=== PATIENT | male | born 1990 | race Hispanic/Latino ===

== ENCOUNTER 2025-03-23 10:03 | Emergency (ER) | payer OTHER ==
[2025-03-23] MEDS ORDERED: MORPHINE 4 MG/ML SYR ONE (10:14)
[2025-03-23] MEDS ORDERED: ONDANSETRON 4 MG/2 ML VIAL ONE (10:15)
[2025-03-23] MEDS ORDERED: NA CHLORIDE 0.9% 1,000 ML ONE (10:15)
[2025-03-23 10:29] LABS: Absolute Lymphocytes (CBC) 2.2 K/uL (0.7-4.9); Hematocrit 44.7 % (39.6-49.0); Hemoglobin 14.9 g/dL (13.6-17.9); MCH 27.7 pg (27.0-35.0); MCHC 33.3 g/dL (32.0-36.0); MCV 83.2 fL (80-100); MPV 8.0 fL (7.6-11.3); Nucleated RBC Absolute Count 0.0 (0-0); Nucleated Red Blood Cells % 0.1 % (0-0); RBC Red Blood Cell Count 5.37 M/uL (4.33-5.43); White Blood Count 7.70 thou/uL (4.3-10.9)
[2025-03-23] MEDS ORDERED: KETOROLAC 30 MG/ML INJ ONE (10:42)
[2025-03-23] MEDS ORDERED: HYDROMORPHONE HCL 1 MG/ML INJ ONE (10:42)
[2025-03-23 10:49] LABS: ALT/SGPT 42.0 U/L (16-61); AST/SGOT 19.0 U/L (15-37); Albumin 4.1 g/dL (3.4-5.0); Albumin/Globulin Ratio 1.1 (1.1-1.8); Alkaline Phosphatase 62.0 U/L (45-117); Anion Gap 8.9 mEq/L (5.0-15.0); BUN Blood Urea Nitrogen 14.0 mg/dL (7-18); Globulin 3.8 g/dL (2.3-3.5); Glucose Level 108.0 mg/dL (74-106); Lipase 24.0 U/L (13-75); Potassium 3.9 mEq/L (3.5-5.1)
--- NOTE | 2025-03-23 10:52 | RAD REPORT ---
EXAMINATION: CT ABDOMEN AND PELVIS WITH CONTRAST CLINICAL INDICATION: Abdominal pain TECHNIQUE: CT abdomen and pelvis was performed, after the administration of 100 cc Isovue-300.. Sagit jase and coronal reconstructions were obtained. One or more of the following dose reduction techniques were used: Automated exposure control, adjustment of the mA and kV according to patient si ze, and iterative reconstruction. Unless otherwise specified, incidental findings do not require dedicated imaging follow-up. [id number]. Oral contrast was not given which limits evaluation of bowel and appendix. COMPARISON: .None FINDINGS: Multiple right renal calculi. Delay in concentration of contrast within the right kidney. Mild to mod erate right hydronephrosis is present. Right ureter is dilated. 3 mm calculus right UVJ.. 3 cm fluid filled structure upper pole right kidney contains several calcifications. Multiple left renal calculi. No hydronephrosis. Left ureter is not dilated. 3 mm calculus left UPJ. L eft renal simple cysts Liver, spleen, pancreas and adrenals unremarkable Small hiatal hernia. No evidence of diverticulitis. Small inguinal hernias : IMPRESSION: 3 mm calculus right UVJ results in mild to moderate right hydronephrosis 3 cm fluid filled structure right kidney contains calcifications. This may represent a calyceal diver ticulum. This could be evaluated with delayed CT abdomen to determine if contrast fills the fluid which would confirm a calyceal diverticulum. Bilateral renal calculi 3 mm calculus left UVJ does not appear to result in an obstruction
[2025-03-23 11:19] LABS: Sqamous Epithelial <5 /HPF (None Seen); Urine Crystals Unidentified Few /HPF (None Seen); Urine Culture Reflex Order NOT NEEDED; Urine Microscopic Reflex YN ORDER UMIC; Urine WBC Clump Rare /HPF (None Seen); Urine Yeast (Budding) Trace /HPF (None Seen)
--- NOTE | 2025-03-23 12:20 | RAD REPORT ---
EXAMINATION: Abdomen Wo Contrast CLINICAL INDICATION: Abdominal pain TECHNIQUE: CT abdomen was performed, without IV contrast. Patient had received IV contrast earlier in return for delayed images., Axial, sagittal and coronal reconstructions were obtained. One or more of the following dose reduction techniques were used: Automated exposure control, adjustment of the m A and kV according to the patient size, and iterative reconstruction. Unless otherwise specified, incidental findings do not require dedicated imaging follow-up. COMPARISON: March 23, 2025 CT FINDINGS: Contrast fills 3 calyceal diverticula left kidney. Largest 2.5 cm. 3 cm fluid-filled structure upper pole right kidney does not fill with contrast. Density 28 Hounsfiel d unit on the enhanced CT. IMPRESSION: 3 cm complex cystic mass upper pole right kidney may represent a benign complex cyst or cystic neopla sm. Left renal calyceal diverticula
--- NOTE | 2025-03-23 12:37 | ER ---
Nurse's Notes [facility] Name: Drake Peters Age: 35 yrs Sex: Male : 1990 Arrival Date: 03/23/2025 Time: 10:03 Bed 17 Private MD: Diagnosis: Calculus of kidney with calculus of ureter-right, 3 mm with hydronephrosis Presentation: 03/23 10:20 Chief complaint: Patient states: right sided abd pain started 1 hour ago , radiates to iw back. Coronavirus screen: At this time, the client does not indicate any symptoms associated with coronavirus-19. Ebola Screen: No symptoms or risks identified at this time. Initial Sepsis Screen: Does the patient meet any 2 criteria? No. Patient's initial sepsis screen is negative. Does the patient have a suspected source of infection? No. Patient's initial sepsis screen is negative. Risk Assessment: Do you want to hurt yourself or someone else? Patient reports no desire to harm self or others. 10:20 Method Of Arrival: Ambulatory iw 10:20 Acuity: NAVNEET 3 iw 10:37 Onset of symptoms was March 23, 2025 at 09:30. me1 Historical: - Allergies: 10:21 No Known Allergies; iw - Home Meds: 10:21 None [Active]; iw - PMHx: 10:21 None; iw - PSHx: 10:21 None; iw - Immunization history:: Adult Immunizations up to date. - Infectious Disease History:: Denies. - Social history:: Smoking status: Patient denies any tobacco usage or history of. Screenin:15 [facility] ED Fall Risk Assessment (Adult) History of falling in the last 3 months, me1 including since admission No falls in past 3 months (0 pts) Confusion or Disorientation No (0 pts) Intoxicated or Sedated No (0 pts) Impaired Gait No (0 pts) Mobility Assist Device Used No (0 pt) Altered Elimination No (0 pt) Score/Fall Risk Level 0 - 2 = Low Risk Maintained a safe environment, Provided non-skid footwear, Hourly rounding (assess needs \T\ fall precautionary measures) done. Abuse screen: Denies threats or abuse. Nutritional screening: No deficits noted. Tuberculosis screening: No symptoms or risk factors identified. Assessment: 10:15 General: Appears uncomfortable, well groomed, well developed, well nourished, Behavior me1 is calm, cooperative, appropriate for age, Reports right sided abd pain started 1 hour ago , radiates to back. Pain: Complains of pain in right lower quadrant Pain radiates to anterior aspect of right lateral abdomen Pain currently is 8 out of 10 on a pain scale. Quality of pain is described as sharp, shooting, Pain began suddenly, Is continuous. Neuro: Level of Consciousness is awake, alert, obeys commands, Oriented to person, place, time, situation, Appropriate for age. Cardiovascular: Patient's skin is warm and dry. Respiratory: Airway is patent Respiratory effort is even, unlabored, Respiratory pattern is regular, symmetrical. GI: Abdomen is non-distended, Bowel sounds present X 4 quads. Abd is soft X 4 quads Reports lower abdominal pain, since this morning. : Reports pain in right flank(s), lower quadrant(s) since this morning. EENT: No signs and/or symptoms were reported regarding the EENT system. Derm: Musculoskeletal: Circulation, motion, and sensation intact. Range of motion: intact in all extremities. Vital Signs: 10:20 BP 145 / 103; Pulse 72; Resp 16; Temp 99.2; Pulse Ox 100% on R/A; Weight 99.79 kg; iw Height 6 ft. 4 in. ; 11:00 BP 153 / 93; Pulse 78; Resp 16; Pulse Ox 94% ; me1 11:08 Pain 3/10; me1 12:00 BP 156 / 81; Pulse 87; Resp 16; Pulse Ox 100% ; me1 12:51 BP 141 / 78; Pulse 70; Resp 15; Temp 98.3; Pulse Ox 98% ; me1 10:20 Body Mass Index 26.78 (99.79 kg, 193.04 cm) iw 11:08 Pain Scale: Adult me1 ED Course: 10:07 Patient arrived in ED. al6 10:08 Sonya Alvarado PA-C is PHCP. sb4 10:08 Aneesh Fay DO is Attending Physician. sb4 10:13 Gabbi Monet, LIBBY is Primary Nurse. me1 10:15 No provider procedures requiring assistance completed. me1 10:15 Patient has correct armband on for positive identification. Bed in low position. Call me1 light in reach. Side rails up X2. Provided Education on: POC. Verbalized understanding.. Client placed on continuous cardiac and pulse oximetry monitoring. NIBP monitoring applied. Pulse ox on. NIBP on. 10:19 CBC with Diff Sent. bc6 10:19 CMP Sent. bc6 10:19 Lipase Sent. bc6 10:19 Initial lab(s) drawn, by me, sent to lab. Inserted saline lock: 20 gauge in right bc6 antecubital area, using aseptic technique. Blood collected. Flushed with 10 mL NS. 10:21 Triage completed. iw 10:21 Arm band placed on. iw 10:32 CT Abd/Pelvis - IV Contrast Only In Process Unspecified. EDMS 11:08 UA Rfx Jered Cult if indicated Sent. me1 11:08 Urine collected: clean catch specimen, clear. me1 11:15 Abdomen Wo Contrast In Process Unspecified. EDMS 12:36 Siva Gracia MD is Referral Physician. sb4 12:56 IV discontinued, intact, bleeding controlled, No redness/swelling at site. Pressure me1 dressing applied. Administered Medications: 10:31 Drug: Ondansetron IVP 4 mg IVP once; over 2 minutes Route: IVP; Site: right antecubital;me1 10:46 Follow up: Response: No adverse reaction; Nausea is decreased me1 10:32 Drug: morphine IVP or IV 4 mg IVP once over 4 mins Route: IVP; Infused Over: 4 mins; me1 Site: right antecubital; 10:46 Follow up: Response: No adverse reaction; Pain is unchanged, physician notified me1 10:32 Drug: NS 0.9% IV 1000 ml IV at 1 bolus Per protocol; to be given as a bolus over 60 me1 minutes Route: IV; Rate: 1 bolus; Site: right antecubital; 12:51 Follow up: Response: No adverse reaction; IV Status: Completed infusion; IV Intake: me1 1000ml 10:46 Drug: HYDROmorphone IVP 1 mg IVP once Route: IVP; Site: right antecubital; me1 11:08 Follow up: Pain 3/10 Adult; Response: No adverse reaction; Pain is decreased me1 10:46 Drug: Ketorolac IVP 15 mg IVP once Route: IVP; Site: right antecubital; me1 11:08 Follow up: Response: No adverse reaction; Pain is decreased me1 Medication: 10:15 VIS not applicable for this client. me1 Intake: 12:51 IV: 1000ml; Total: 1000ml. me1 Outcome: 12:36 Discharge ordered by . sb4 12:56 Discharged to home ambulatory, with friend, me1 12:56 Condition: stable 12:56 Discharge instructions given to patient, Instructed on discharge instructions, follow up and referral plans. medication usage, Demonstrated understanding of instructions, follow-up care, medications, Prescriptions given X 2, 12:57 Patient left the ED. me1 Signatures: Dispatcher [employer] EDKatina Rogel RN RN iw Sonya Alvarado, PAYingC PAKristie sb4 Radha Osuna6 Gabbi Monet RN RN me1 Lakisha Chavez al6 Corrections: (The following items were deleted from the chart) 10:39 10:20 Chief complaint: Patient states: right sided abd pain started 1 hour ago , me1 radiates to back iw
--- NOTE | 2025-03-23 12:37 | EDPHYS ---
Physician Documentation [facility] Name: Drake Peters Age: 35 yrs Sex: Male : 1990 Arrival Date: 03/23/2025 Time: 10:03 Bed 17 Private MD: ED Physician Aneesh Fay HPI: 03/23 10:19 This 35 yrs old Male presents to ER via Unassigned with complaints of sb4 Abdominal Pain. 10:19 The patient presents with abdominal pain right lower quadrant. Onset: The sb4 symptoms/episode began/occurred just prior to arrival. Patient reports sudden onset of right lower quadrant abdominal pain that began this morning while he was at work. Denies any nausea, vomiting, diarrhea, urinary symptoms. Denies any prior occurrences of this. No fever or chills. Historical: - Allergies: 10:21 No Known Allergies; iw - Home Meds: 10:21 None [Active]; iw - PMHx: 10:21 None; iw - PSHx: 10:21 None; iw - Immunization history:: Adult Immunizations up to date. - Infectious Disease History:: Denies. - Social history:: Smoking status: Patient denies any tobacco usage or history of. ROS: 10:19 Constitutional: Negative for fever, chills, and weight loss, sb4 10:19 Abdomen/GI: Positive for abdominal pain, 10:19 All other systems are negative, Exam: 10:19 Head/Face: Normocephalic, atraumatic. Eyes: Extra-ocular motions intact. Periorbital sb4 areas with no swelling, redness, or edema. ENT: Mucous membranes moist. Cardiovascular: Regular rate and rhythm with a normal S1 and S2. Respiratory: No increased work of breathing, no retractions or nasal flaring. Skin: Warm, dry with normal turgor. Normal color with no rashes, no lesions, and no evidence of cellulitis. 10:19 Constitutional: The patient appears alert, awake, in obvious pain, uncomfortable, 10:19 Abdomen/GI: Inspection: distension, that is mild, Bowel sounds: normal, Palpation: moderate abdominal tenderness, in the anterior aspect of right lateral abdomen and right lower quadrant, Vital Signs: 10:20 BP 145 / 103; Pulse 72; Resp 16; Temp 99.2; Pulse Ox 100% on R/A; Weight 99.79 kg; iw Height 6 ft. 4 in. ; 11:00 BP 153 / 93; Pulse 78; Resp 16; Pulse Ox 94% ; me1 11:08 Pain 3/10; me1 12:00 BP 156 / 81; Pulse 87; Resp 16; Pulse Ox 100% ; me1 12:51 BP 141 / 78; Pulse 70; Resp 15; Temp 98.3; Pulse Ox 98% ; me1 10:20 Body Mass Index 26.78 (99.79 kg, 193.04 cm) iw 11:08 Pain Scale: Adult me1 MDM: 10:09 Medical Screening Exam initiated sb4 10:19 Differential diagnosis: appendicitis, Cholelithiasis, non-specific abd pain, sb4 Ureterolithiasis, constipation, gas pains. 10:38 Independent interpretation of the following test(s) in the Emergency Department CT sb4 Scan: My interpretation is Abdomen pelvis with IV contrast -multiple kidney stones bilaterally as well as 2 in the bladder. 12:31 Data reviewed: vital signs, nurses notes, lab test result(s), radiologic studies, I sb4 have discussed the patient's presentation/case with the attending Emergency Department Physician; and as a result, I will discharge patient. Counseling: I had a detailed discussion with the patient and/or guardian regarding the historical points, exam findings, and any diagnostic results supporting the discharge/admit diagnosis, the presence of at least one elevated blood pressure reading (>120/80) during this emergency department visit, lab results, radiology results, the need for outpatient follow up, a urologist. Special discussion: I discussed with the patient the need to follow-up with the PCP/specialist for the noted incidental finding on X-ray/CT scanning. Based on the history and exam findings, there is no indication for further emergent testing or inpatient evaluation. I discussed with the patient/guardian the need to see the urologist for further evaluation of the symptoms. 03/23 10:15 Order name: CBC with Diff; Complete Time: 10: sb4 03/23 10:15 Order name: CMP; Complete Time: 10:51 sb4 03/23 10:15 Order name: Lipase; Complete Time: 10: sb4 03/23 10:51 Order name: UA Rfx Jered Cult if indicated; Complete Time: 11:21 sb4 03/23 10:15 Order name: CT Abd/Pelvis - IV Contrast Only; Complete Time: 10:53 sb4 03/23 11:15 Order name: Abdomen Wo Contrast; Complete Time: 12:21 EDMS 03/23 10:15 Order name: IV Saline Lock; Complete Time: 10:19 sb4 03/23 10:15 Order name: Labs collected and sent; Complete Time: 10:19 sb4 Administered Medications: 10:31 Drug: Ondansetron IVP 4 mg IVP once; over 2 minutes Route: IVP; Site: right antecubital;me1 10:46 Follow up: Response: No adverse reaction; Nausea is decreased me1 10:32 Drug: morphine IVP or IV 4 mg IVP once over 4 mins Route: IVP; Infused Over: 4 mins; me1 Site: right antecubital; 10:46 Follow up: Response: No adverse reaction; Pain is unchanged, physician notified me1 10:32 Drug: NS 0.9% IV 1000 ml IV at 1 bolus Per protocol; to be given as a bolus over 60 me1 minutes Route: IV; Rate: 1 bolus; Site: right antecubital; 12:51 Follow up: Response: No adverse reaction; IV Status: Completed infusion; IV Intake: me1 1000ml 10:46 Drug: HYDROmorphone IVP 1 mg IVP once Route: IVP; Site: right antecubital; me1 11:08 Follow up: Pain 3/10 Adult; Response: No adverse reaction; Pain is decreased me1 10:46 Drug: Ketorolac IVP 15 mg IVP once Route: IVP; Site: right antecubital; me1 11:08 Follow up: Response: No adverse reaction; Pain is decreased me1 Disposition: 16:53 I was immediately available on-site in the Emergency Department for consultation in the ms3 care of the patient. Disposition Summary: 03/23/25 12:36 Discharge Ordered Notes: Location: Home sb4 Problem: new sb4 Symptoms: have improved sb4 Condition: Stable sb4 Diagnosis - Calculus of kidney with calculus of ureter - right, 3 mm with hydronephrosis sb4 Followup: sb4 - With: Siva Gracia MD - When: 1 week - Reason: Recheck today's complaints, Re-evaluation by your physician Discharge Instructions: - Discharge Summary Sheet sb4 - Kidney Stones sb4 Forms: - Patient Portal Instructions sb4 - Leadership Thank You Letter sb4 Prescriptions: - ketorolac 10 mg Oral tablet - take 1 tablet ORAL route every 6 hours as needed for pain; maximum total sb4 duration of 5 days from all oral, intranasal, or parenteral formulations; 10 tablet; Refills: 0, Product Selection Permitted - tamsulosin 0.4 mg Oral capsule - take 1 capsule ORAL route daily; 20 capsule; Refills: 0, Product Selection sb4 Permitted Signatures: Dispatcher [employer] Katina Boo, RN RN iw Aneesh Fay DO DO ms3 Sonya Alvarado PA-C PAKristie sb4 Gabbi Monet RN RN me1 Corrections: (The following items were deleted from the chart) 10:51 10:51 UA Rfx Jered Cult if indicated+U.LAB.BRZ ordered. EDMS EDMS
[2025-03-23 13:40] VITALS: BP 141/78; TEMP 98.3; O2SAT 98
== END 2025-03-23 12:57 | disposition home or self-care (01) ==
LOC: ER 10:03
DX: N13.2 Hydronephrosis with renal and ureteral calculous obstruction (principal)
CPT/HCPCS: 96361; 85025; 81001; 36415; 83690; 80053; 74150; 74177; 96375; 96374; 99284; Q9967; J1171; J2405; J7030; J1885